=== PATIENT | male | born 1990 | race Two or more races ===

== ENCOUNTER 2019-01-11 10:12 | Emergency (ER) | payer BC ==
[~2019-01-11] VITALS: Ht 172.7 cm; Wt 96.0 kg
[2019-01-11 11:03] VITALS: BP 139/96
[2019-01-11] MEDS ORDERED: BACITRACIN ZINC OINT UDPKT TOP ONE (14:30)
[2019-01-11] MEDS ORDERED: LIDOCAINE HCL/PF 1% 10 MG/ML 5ML VIAL IJ ONE (14:30)
== END 2019-01-11 17:18 | disposition home or self-care (01) ==
LOC: ER 11:06
DX: S01.111A Laceration without foreign body of right eyelid and periocular area, initial encounter (principal); W22.8XXA Striking against or struck by other objects, initial encounter; Y93.89 Activity, other specified; Y92.89 Other specified places as the place of occurrence of the external cause; Y99.8 Other external cause status
CPT/HCPCS: 12011; 70486; 99284; J3490; Z7610

== ENCOUNTER 2019-01-16 08:13 | Emergency (ER) | payer BC ==
[~2019-01-16] VITALS: Ht 177.8 cm; Wt 81.0 kg
[2019-01-16 08:40] VITALS: BP 153/89
== END 2019-01-16 12:52 | disposition home or self-care (01) ==
LOC: ER 08:23
DX: S01.111D Laceration without foreign body of right eyelid and periocular area, subsequent encounter (principal); W22.8XXD Striking against or struck by other objects, subsequent encounter
CPT/HCPCS: 99281